=== PATIENT | male | born 1985 | race Caucasian/White ===

== ENCOUNTER 2016-07-01 00:17 | Emergency (ER) | payer MEDICAID ==
[~2016-07-01] VITALS: Ht 177.8 cm; Wt 68.5 kg
[2016-07-01 00:47] VITALS: BP 124/78
== END 2016-07-01 02:11 | disposition left against medical advice (07) ==
LOC: ER 00:17
DX: F41.9 Anxiety disorder, unspecified (principal); Z53.21 Procedure and treatment not carried out due to patient leaving prior to being seen by health care provider